=== PATIENT | female | born 1975 | race Caucasian/White ===

== ENCOUNTER → 2020-09-05 14:19 | Outpatient (CLI) | payer BC, SELFPAY ==
--- NOTE | ~2020-09-05 | US_ITS ---
EXAMINATION: US pelvic complete w TV DATE: 09/05/2020 15:08 INDICATION: Abnormal uterine bleeding Comparison:No prior studies for comparison. TECHNIQUE: Multiple transabdominal and endovaginal sonographic images of the pelvis performed. FINDINGS: The uterus measures 8.4 x 3.2 x 4.6 cm. There is a 2.1 cm uterine fibroid at the fundus. Th e endometrial complex measures 3 mm. The right ovary measures 2.6 x 2.2 x 2.6 cm and the left ovary measures 2.3 x 1.7 x 3.2 cm. There ar e small follicles in each ovary. Normal doppler signal in both ovaries. There is no free fluid in the pelvis. There are no abnormal masses seen on either side. IMPRESSION: 1. 2.1 cm fibroid at the fundus of uterus. Reviewed, dictated and finalized at location A.
== END ==
PROVIDERS: Visit Provider Student in an Organized Health Care Education/Training Program
DX: D25.9 Leiomyoma of uterus, unspecified (principal); N93.9 Abnormal uterine and vaginal bleeding, unspecified
CPT/HCPCS: 76830; 76856

== ENCOUNTER → 2020-09-10 01:49 | Outpatient (CLI) | payer BC, SELFPAY ==
[2020-09-10 20:12] LABS: SARS-CoV-2 RNA PCR Negative
== END ==
PROVIDERS: PCP Pediatrics; Visit Provider Student in an Organized Health Care Education/Training Program
DX: Z01.812 Encounter for preprocedural laboratory examination (principal); Z20.822 Contact with and (suspected) exposure to COVID-19
CPT/HCPCS: C9803; U0003; U0005

== ENCOUNTER 2020-09-10 09:49 | Outpatient (CLI) | payer BC, SELFPAY ==
[2020-09-10 10:13] LABS: Hematocrit 36.4 % (37.0-47.0); Hemoglobin 12.1 g/dL (12.0-15.0)
== END 2020-09-10 09:50 | disposition home or self-care (01) ==
LOC: ANHSURGERY 09:53
PROVIDERS: PCP Pediatrics; Visit Provider Student in an Organized Health Care Education/Training Program
DX: Z01.818 Encounter for other preprocedural examination (principal); N92.6 Irregular menstruation, unspecified
CPT/HCPCS: 36415; 85014; 85018

== ENCOUNTER 2020-09-13 02:00 | Day surgery (SDC) | payer BC, SELFPAY ==
[2020-09-07 13:50] VITALS: BMI 28.1
--- NOTE | 2020-09-13 08:00 | PM.IMHP ---
H&P: HPI History of Present Illness Date/Time: 09/13/20 08:00 44-year-old who presents for hysteroscopy, D&C, endometrial ablation for abnormal uterine bleeding. Patient presented to the office complaining of heavy painful menstrual bleeding for the past 5-6 years. Patient was previously using oral contraceptive pills but was advised to stop given maternal history of breast cancer. Chief Complaint: abnormal uterine bleeding pelvic pain Review of Systems Cardiovascular: Cardiovascular: Denies chest pain, Denies leg edema, Denies palpitations, Denies dyspnea and Denies dyspnea on exertion Respiratory: Respiratory: Denies cough, Denies dyspnea and Denies dyspnea on exertion Gastrointestinal: Gastrointestinal: Denies abdominal pain, Denies constipation, Denies diarrhea, Denies nausea and Denies vomiting Genitourinary: Genitourinary: Denies hematuria, Denies urinary frequency, Denies dysuria, Denies pelvic pain, Denies urinary incontinence and Denies vaginal discharge Neurologic: Reports system reviewed and no additional complaints, except as documented Psychiatric: Psychiatric: Reports no additional psychiatric complaints Endocrine: Endocrine: Denies palpitations PMFSH Social History Social History Smoking status: Never smoker Alcohol intake: current Drinks per week: 6 Substance use: current Substance use type: does not use Living arrangements: with family Spiritual care concerns: No Meds Home Medications and Allergies Home Medications Medication Instructions Recorded Confirmed Type Control Pill 1 tablet PO HS 09/07/20 09/07/20 History Allergies Allergy/AdvReac Type Severity Reaction Status Date / Time No Known Allergies Allergy Verified 09/07/20 13:49 Exam Const: General: no acute distress Eyes: EOM: EOMs intact bilaterally Neck: Neck: supple Thyroid: thyroid normal Chest: Breast/axilla inspection: normal inspection of the breasts Breast/axilla palpation: normal palpation of the breasts, normal palpation of the axillae and no axillary lymphadenopathy Resp: Effort & Inspection: normal respiratory effort Auscultation: clear to auscultation bilaterally Cardio: Rate: regular rate Rhythm: regular rhythm GI: Inspection: non-distended GI Palp: Yes Soft to palpation, No Tenderness to palpation present (GI) and No Guarding due to palpation present (GI) Auscultation: normal bowel sounds : General: No bladder normal to palpation External Female Exam: normal external appearance Speculum Exam - Vagina: normal vaginal discharge and No vaginal bleeding Speculum Exam - Cervix: nontender Bimanual exam- vagina & uterus: No bladder normal to palpation and No Cervical tenderness present OB/external & speculum: No vaginal bleeding Skin: General skin exam: normal color and no rashes or lesions noted Neuro: Cognition (Neuro): normal cognition Speech: normal speech Extrem: General: normal to inspection and no edema Psych: Mental Status: mental status grossly normal Affect: normal affect Assessment and Plan Assessment and plan (1) Abnormal uterine bleeding (AUB): Code(s): N93.9 - Abnormal uterine and vaginal bleeding, unspecified Status: Acute Assessment and Plan: pt complaining of heavy painful periods for the past 5 years pt previously on OCPs and stopped due to family history of breast cancer pt desires surgical management of heavy bleeding pelvic US showed uterus measuring 8.4 x 3.2 x4.6 cm with a 2.1 cm fibroid at the fundus. plan for hysteroscopy, D&C, endometrial ablation (2) Pelvic pain: Code(s): R10.2 - Pelvic and perineal pain Status: Acute
--- NOTE | 2020-09-13 08:15 | WPDHPUPDATE1 ---
History and Physical Update Update Date/Time: 09/13/20 08:15 History and Physical has been reviewed, including an updated exam of the patient. There are NO changes in the patient's condition. Risks, benefits, and alternatives have been discussed and questions answered. Patient agrees to proceed with procedure.
[2020-09-13] MEDS: ACETAMINOPHEN 500 MG TABLET 1000 MG PO (10:17)
[2020-09-13] MEDS: LACTATED RINGERS 1,000 ML 30 ML IV CONT (10:30)
[2020-09-13 10:34] VITALS: BP 145/83; PULSE 60; RESP 16; TEMP 36.9; O2SAT 100
--- NOTE | 2020-09-13 11:27 | WPDANESEPPF ---
Anes - Initial Pre Proc Eval Procedure: Operation Date: 09/13/20 12:00 Proposed Procedures p Hysteroscopy, Dilation and Curettage with Ijeoma Ablation - Jack Sow MD Date/Time: 09/13/20 11:27 Surgeon: Jack Sow MD Pre Op Diagnosis: irregular bleeding Patient Data Age: 44 Gender: F Height: 5 ft 7 in Weight: 85.5 kg Last Vital Signs Temp 98.5 F 09/13/20 10:34 Pulse 60 09/13/20 10:34 Resp 16 09/13/20 10:34 BP 145/83 H 09/13/20 10:34 Pulse Ox 100 09/13/20 10:34 Allergies Allergy/AdvReac Type Severity Reaction Status Date / Time No Known Allergies Allergy Verified 09/13/20 10:14 Home Medications Medication Instructions Recorded Confirmed Type Control Pill 1 tablet PO HS 09/07/20 09/13/20 History Patient hx anesthesia problems: none Family hx anesthesia problems: none [facility] Past Medical History Medical History (Updated 09/13/20 @ 11:30 by John Slade MD) McArdles disease Migraine Social History Social History Smoking status: Never smoker Alcohol intake: current Drinks per week: 6 Substance use: current Substance use type: does not use Living arrangements: with family Spiritual care concerns: No Anes - Eval Final PreProcedure Day of Procedure 09/13/20 11:27 Patient weight: overweight Heart: regular rate and rhythm Lungs: clear to auscultation Airway: Mallampati scale class II Neurological: alert and oriented Last oral intake: >/= 8 hours ASA classification: II Emergent: no Anesthetic plan: proceed Anesthesia type and monitoring: general GIVS and standard monitoring Informed Consent: The patient's anesthetic plan and its attendant risks and benefits were discussed with the patient/family/POA. Questions were solicited and answers provided to the satisfaction of the patient/family/POA.
--- NOTE | 2020-09-13 12:35 | P.OP_ITS ---
Procedure Note - Detailed Date of procedure: 09/13/20 Pre-op diagnosis: irregular bleeding Post-op diagnosis: same Procedure performed: Paracervical block Hysteroscopy D&C endometrial ablation Description of procedure: The risks, benefits, indications and alternatives were reviewed with the patient and informed consent was obtained. The patient was taken to the operating room and placed under general anesthesia without incident. A vaginal exam was performed and the uterus was noted to be anteverted. The patient was placed in dorsolithotomy position, prepped and draped in the usual sterile fashion. Mota retractors were placed anteriorly and posteriorly in the vagina, and the cervix was grasped with a tenaculum. A paracervical block was then performed. The cervix was dilated and the hysteroscope was introduced. The cervical canal was visualized and the hysteroscope was passed into the uterine cavity without incident. The endometrial lining was visualized. Both ostia of the fallopian tubes were visualized and appear to be grossly normal. The hysteroscope was removed, and the cervix was further dilated to allow for passage of the sharp curette. The sharp curette was advanced to the fundus and endometrial curettage was performed, with the curettage sampling being preserved and sent for pathology. The uterus sounded to 8 cm total, with the cervical length measured as 2.5 cm, with a difference of 5.5 cm for the uterine cavity. The Ijeoma was set to the appropriate depth and introduced into the cavity. The device was opened and advanced gently to the fundus. The array on the device was noted to not have opened all the way. Good CO2 seal was noted. The device was closed and removed. A second attempt was made to open the device in the cavity. At the second attempt, a good CO2 seal was unable to be obtained. The device was then removed again and the hysteroscope was re-introduced. Upon survey of the endometrial cavity, it was not that there was a small perforation at the fundus of the uterus. The perforation was hem ostatic. All instrumentation was removed from the cavity and the procedure was aborted. The tenaculum was removed with good hemostasis noted. Instrument, sharp, and sponge counts were correct. 140 mL of normal saline was instilled and 40 mL of normal saline was returned leaving a deficit of 100 mL. The patient tolerated the procedure well. The patient was taken to the recovery area in stable condition. Anesthesia: [facility] Surgeon: Jack Sow MD Estimated blood loss (mL): 25 Drains: No Packing: No Pathology: yes (endometrial curettings) Complications: No immediate complications Condition: stable Disposition: PACU
[2020-09-13 12:41] VITALS: BP 151/85; PULSE 58; RESP 18; O2SAT 98
[2020-09-13] MEDS: oxyCODONE HCL (*CRX) 5 MG TAB IR PO (13:07)
[2020-09-13 13:10] VITALS: BP 162/87; PULSE 60; RESP 20
[2020-09-13 13:40] VITALS: BP 163/75; PULSE 52; RESP 20
== END 2020-09-13 13:57 | disposition home or self-care (01) ==
PROVIDERS: PCP Pediatrics; Visit Provider Student in an Organized Health Care Education/Training Program
PROC: 0U5B8ZZ Destruction of Endometrium, Via Natural or Artificial Opening Endoscopic (ICD-10-PCS; CPT 58563; principal; 2020-09-13 12:00)
DX: N93.9 Abnormal uterine and vaginal bleeding, unspecified (principal); R10.2 Pelvic and perineal pain; E74.04 McArdle disease
CPT/HCPCS: 58563; 88305; A9270; J1100; J2250; J2405; J2704; J3010; J7030; J7120

== ENCOUNTER → 2021-07-01 00:38 | Outpatient (CLI) | payer BC, SELFPAY ==
[2021-07-02 10:57] LABS: SARS-CoV-2 RNA PCR Negative
== END ==
PROVIDERS: PCP Pediatrics; Visit Provider Student in an Organized Health Care Education/Training Program
DX: Z01.812 Encounter for preprocedural laboratory examination (principal); Z20.822 Contact with and (suspected) exposure to COVID-19
CPT/HCPCS: C9803; U0003; U0005

== ENCOUNTER 2021-07-01 08:49 | Outpatient (CLI) | payer BC, SELFPAY ==
--- NOTE | 2021-07-01 08:57 | ECG_ITS ---
Measurements Intervals [place] Rate: 57 P: 29 ME: 157 QRS: 37 QRSD: 86 T: 24 QT: 398 QTc: 388 Interpretive Statements SINUS BRADYCARDIA BASELINE ARTIFACT- I, II, III, AVR, AVL, AVF BORDERLINE ECG Electronically Signed On 07-01-2021 9:27:19 HEMP [employer] OFF by Shadi Stiles D.O.
[2021-07-01 09:37] LABS: Hematocrit 38.2 % (37.0-47.0); Hemoglobin 12.8 g/dL (12.0-15.0); Mean Corpuscular HGB Conc 33.5 g/dl (32-36); Mean Corpuscular Hemoglobin 29.4 pg (26-34); Mean Corpuscular Volume 87.8 fl (80-100); Mean Platelet Volume 9.4 fl (7.4-10.4); Platelet Count Result 289 k/mm3 (150-375); Red Blood Count 4.35 M/mm3 (4.2-5.4); Red Cell Distribution Width 13.9 % (11.5-14.5); White Blood Count 5.2 K/mm3 (4.5-10.0)
[2021-07-01 09:50] LABS: Anion Gap 13 mmol/L (8-16); Blood Urea Nitrogen 15 mg/dL (7-17); Calcium 9.2 mg/dL (8.4-10.2); Carbon Dioxide 22 mmol/L (22-30); Chloride 105 mmol/L (98-107); Estimated Glomerular Filt Rate > 60; Glucose 113 mg/dL (65-110); Sodium 140 mmol/L (137-145)
== END 2021-07-01 08:50 | disposition home or self-care (01) ==
LOC: ANHSURGERY 08:52
PROVIDERS: Anesthesiology; PCP Pediatrics; Visit Provider Student in an Organized Health Care Education/Training Program
DX: N93.9 Abnormal uterine and vaginal bleeding, unspecified (principal); Z79.899 Other long term (current) drug therapy; I10 Essential (primary) hypertension; Z01.818 Encounter for other preprocedural examination; R94.31 Abnormal electrocardiogram [ECG] [EKG]
CPT/HCPCS: 36415; 80048; 85027; 93005

== ENCOUNTER 2021-07-04 01:29 | Day surgery (SDC) | payer BC, SELFPAY ==
[2021-06-28 14:48] VITALS: BMI 31.3
--- NOTE | 2021-06-28 15:00 | PC.NURSE ---
Report to the Outpatient Waiting Room, entrance under the green pavilion located off [facility], at time 11:30 on date 07/04/21. OR Time: 1:30. - You will be asked a series of questions to screen for COVID 19 for your protection. - A mask is required within the hospital. - No visitors are allowed at this time. Preoperative COVID Testing Requirements: COVID TEST 07/01 AT 8:40 No COVID Test needed if: (proof is required; if not received patient will have Rapid Test prior to entry) - Patient has received COVID Vaccine at least 14 days prior to procedure date or - Patient has positive COVID test result within last 90 days of surgery date. COVID Test needed if above criteria is not met If not COVID vaccinated a COVID test must be conducted within 72 hours of surgery and patient is asked to isolate self from time of testing until procedure. You will go to the [employer] [facility] for your COVID testing. The [employer] [facility] site is located at the corner of [address] [facility]. You will only be called if COVID results are positive and your surgeon may reschedule your elective surgery date. Patients may have clear liquids (water, carbonated beverages, clear teas, apple juice) until 3 hours prior to surgery (10:30) with a maximum of 20 ounces. - No food from midnight until time of surgery Take the following medications with a SIP of water the morning of surgery: NONE Medications to discontinue per physician: N/A Date to take last dose: N/A Please no make-up, nail wolof, hairspray, perfume, deodorant, or body powder the day of surgery. No jewelry (including any body piercings) or valuables the day of surgery, leave them at home. Please take a shower or bath the night before, or the morning of, surgery with an antibacterial soap. Wear comfortable, loose fitting clothing. - Jewelry must be removed prior to entering the operating room. Rings and piercings that are not removed may be cut off. - The hospital will not accept responsibility for valuables. - Please leave all valuables, including medications, at home the day of surgery. If you are going home after surgery, a licensed tow bar driver must drive you home. - NO public transportation without another adult. - We recommend that an adult stay with you for 24 hours following discharge. - We also recommend that you do not drive, make important decision, drink alcoholic beverages, or take any drugs that were not prescribed by your health care provider for at least 24 hours after your discharge time. Follow any additional instructions given to you from your surgeon. Telephone instructions given to LEROY ALVARADO and asked if any additional questions and then verbalized understanding. Patient advised to call surgeon office or pre surgery nurse liaison [phone] if any additional questions.
--- NOTE | 2021-07-03 10:19 | PM.IMHP ---
H&P: HPI History of Present Illness Date/Time: 07/03/21 10:19 Chief Complaint: abnormal uterine bleeding Narrative: 45 yo who presents for hysteroscopy, D&C, endometrial ablation for abnormal uteirne bleeding. Pt has been dealing with AUB for some time. We attempted to perform the above procedure on 09/13/20 but had to abort the procedure to due uterine perforation. Pt continued to have heavy painful bleeding. She is currently taking progesterone to help her bleeding. Pt's partner has had a vasectomy. Review of Systems Cardiovascular: Cardiovascular: Denies chest pain, Denies leg edema, Denies palpitations, Denies dyspnea and Denies dyspnea on exertion Respiratory: Respiratory: Denies cough, Denies dyspnea and Denies dyspnea on exertion Gastrointestinal: Gastrointestinal: Denies abdominal pain, Denies constipation, Denies diarrhea, Denies nausea and Denies vomiting Genitourinary: Genitourinary: Denies hematuria, Denies urinary frequency, Denies dysuria, Denies pelvic pain, Denies urinary incontinence and Denies vaginal discharge Neurologic: Reports system reviewed and no additional complaints, except as documented Psychiatric: Psychiatric: Reports no additional psychiatric complaints Endocrine: Endocrine: Denies palpitations [facility] Past Medical History Medical History (Updated 09/13/20 @ 11:30 by John Slade MD) McArdles disease Migraine Social History Social History Smoking status: Never smoker Alcohol intake: current Drinks per week: 12 Substance use: never Substance use type: does not use Spiritual care concerns: No Meds Home Medications and Allergies Home Medications Medication Instructions Recorded Confirmed Type esomeprazole magnesium [Nexium] 40 mg PO DAILY 06/28/21 06/28/21 History hydrochlorothiazide 12.5 mg PO DAILY 06/28/21 06/28/21 History megestrol 20 mg PO DAILY 06/28/21 06/28/21 History sucralfate [Carafate] 1 g PO DAILY 06/28/21 06/28/21 History Allergies Allergy/AdvReac Type Severity Reaction Status Date / Time No Known Allergies Allergy Verified 06/28/21 14:45 Exam Const: General: no acute distress Eyes: EOM: EOMs intact bilaterally Neck: Neck: supple Thyroid: thyroid normal Chest: Breast/axilla inspection: normal inspection of the breasts Breast/axilla palpation: normal palpation of the breasts, normal palpation of the axillae and no axillary lymphadenopathy Resp: Effort & Inspection: normal respiratory effort Auscultation: clear to auscultation bilaterally Cardio: Rate: regular rate Rhythm: regular rhythm GI: Inspection: non-distended GI Palp: Yes Soft to palpation, No Tenderness to palpation present (GI) and No Guarding due to palpation present (GI) Auscultation: normal bowel sounds : General: No bladder normal to palpation External Female Exam: normal external appearance Speculum Exam - Vagina: normal vaginal discharge and No vaginal bleeding Speculum Exam - Cervix: nontender Bimanual exam- vagina & uterus: No bladder normal to palpation and No Cervical tenderness present OB/external & speculum: No vaginal bleeding Skin: General skin exam: normal color and no rashes or lesions noted Neuro: Cognition (Neuro): normal cognition Speech: normal speech Extrem: General: normal to inspection and no edema Psych: Mental Status: mental status grossly normal Affect: normal affect Assessment and Plan Assessment and plan (1) Abnormal uterine bleeding (AUB): Code(s): N93.9 - Abnormal uterine and vaginal bleeding, unspecified Status: Acute Assessment and Plan: pt with long history of heavy painful bleeding pt attempted to have endometrial ablation in the past but was aborted due to perforation plan for hysteroscopy, D&C, endometrial ablation.
[2021-07-04] VITALS (11 sets, daily range): BP systolic 90–147; BP diastolic 55–86; PULSE 40–64; RESP 10–16; TEMP 36.1–36.9; O2SAT 96–100
--- NOTE | 2021-07-04 09:23 | WPDANESEPPF ---
Anes - Initial Pre Proc Eval Procedure: Operation Date: 07/04/21 13:30 Proposed Procedures p Hysteroscopy, Dilation and Curettage with Ijeoma Endometrial Ablation, Bilateral Laparoscopic Salpingectomy - Jack Sow MD <Antonio Turner MD - Last Filed: 07/05/21 15:27> Date/Time: 07/04/21 09:23 <Antonio Turner MD - Last Filed: 07/05/21 15:27> Surgeon: Jack Sow MD <Antonio Turner MD - Last Filed: 07/05/21 15:27> Pre Op Diagnosis: heavy bleeding, Desires Sterilization <Antonio Turner MD - Last Filed: 07/05/21 15:27> Patient Data Age: 45 Gender: F Height: 1.7 m Weight: 90.72 kg <Antonio Turner MD - Last Filed: 07/05/21 15:27> Allergies Allergy/AdvReac Type Severity Reaction Status Date / Time No Known Allergies Allergy Verified 07/04/21 11:35 <Antonio Turner MD - Last Filed: 07/05/21 15:27> Home Medications Medication Instructions Recorded Confirmed Type esomeprazole magnesium [Nexium] 40 mg PO DAILY 06/28/21 07/04/21 History hydrochlorothiazide 12.5 mg PO DAILY 06/28/21 07/04/21 History megestrol 20 mg PO DAILY 06/28/21 07/04/21 History sucralfate [Carafate] 1 g PO DAILY 06/28/21 07/04/21 History acetaminophen 500 mg PO Q6H PRN #30 cap 07/04/21 Rx ibuprofen 600 mg PO Q6H PRN #30 tablet 07/04/21 Rx <Antonio Turner MD - Last Filed: 07/05/21 15:27> Patient hx anesthesia problems: none <Michael Acosta DO - Last Filed: 07/04/21 12:34> Family hx anesthesia problems: none <Michael Acosta DO - Last Filed: 07/04/21 12:34> Results Review: All pre-operative results and documents have been reviewed as part of the pre-operative evaluation. <Antonio Turner MD - Last Filed: 07/05/21 15:27> [facility] Past Medical History Medical History: Medical History (Updated 07/04/21 @ 09:24 by Antonio Turner MD) Abnormal uterine bleeding (AUB) HTN (hypertension) McArdles disease Migraine Obesity <Antonio Turner MD - Last Filed: 07/05/21 15:27> Social History Social History: Social History Smoking status: Never smoker Alcohol intake: current Drinks per week: 12 Substance use: never Substance use type: does not use Living arrangements: with family Spiritual care concerns: No <Antonio Turner MD - Last Filed: 07/05/21 15:27> Anes - Eval Final PreProcedure Day of Procedure 07/04/21 09:23 <Antonio Turner MD - Last Filed: 07/05/21 15:27> Patient weight: obese <Antonio Turner MD - Last Filed: 07/05/21 15:27> obese <Michael Acosta DO - Last Filed: 07/04/21 12:34> Heart: regular rate and rhythm <Antonio Turner MD - Last Filed: 07/05/21 15:27> regular rate and rhythm <Michael Acosta DO - Last Filed: 07/04/21 12:34> Lungs: clear to auscultation and normal air movement <Antonio Turner MD - Last Filed: 07/05/21 15:27> clear to auscultation and normal air movement <Michael Acosta DO - Last Filed: 07/04/21 12:34> Airway: Mallampati scale class II <Antonio Turner MD - Last Filed: 07/05/21 15:27> Mallampati scale class II <Michael Acosta DO - Last Filed: 07/04/21 12:34> Neurological: alert and oriented <Antonio Turner MD - Last Filed: 07/05/21 15:27> alert and oriented <Michael Acosta DO - Last Filed: 07/04/21 12:34> Last oral intake: >/= 8 hours <Antonio Turner MD - Last Filed: 07/05/21 15:27> >/= 8 hours <Michael Acosta DO - Last Filed: 07/04/21 12:34> ASA classification: II <Antonio Turner MD - Last Filed: 07/05/21 15:27> III <Michael Acosta DO - Last Filed: 07/04/21 12:34> Emergent: no <Antonio Turner MD - Last Filed: 07/05/21 15:27> no <Michael Acosta DO - Last Filed: 07/04/21 12:34> Anesthetic plan: proceed <Antonio Turner MD - Last Filed: 07/05/21 15:27> proceed <Jourdan
--- NOTE | 2021-07-04 10:21 | WPDHPUPDATE1 ---
History and Physical Update Update Date/Time: 07/04/21 10:21 History and Physical has been reviewed, including an updated exam of the patient. There are NO changes in the patient's condition. Risks, benefits, and alternatives have been discussed and questions answered. Patient agrees to proceed with procedure.
[2021-07-04] MEDS: ACETAMINOPHEN 500 MG TABLET 1000 MG PO (12:11)
[2021-07-04] MEDS: LACTATED RINGERS 1,000 ML 30 ML IV CONT ×3 (12:11→15:31)
[2021-07-04] MEDS: KETOROLAC 15 MG/ML VIAL (*BKC) IV PUSH ×2 (12:14→15:30)
--- NOTE | 2021-07-04 14:09 | W.PM.PROC2 ---
Procedure Note - Detailed Date of Procedure 07/04/21 Pre-op Diagnosis heavy bleeding, Desires Sterilization Post-op Diagnosis same Procedure Performed hysteroscopy dilation & curettage endometrial ablation laparoscopic bilateral salpingectomy Surgeon Jack Sow MD Anesthesia general Indications desires permanent sterilization Findings peritoneal gun powder lesions noted on the uterus suggestive of endometriosis omental adhesions to the anterior abdominal abdominal wall Description of Procedure the patient was taken to the operating room where general endotracheal anesthesia was undertaken and found to be adequate. She was then prepped and draped in the dorsal lithotomy position. A pre-operative team brief and time-out were completed. A catheter was placed to drain the bladder. Attention was then turned to the abdomen which was anesthetized umbilical he with injected anesthetic. A 5 mm skin incision was made in the umbilicus. A 5 mm optical trocar was then placed with direct visualization of the abdominal layers during placement. The trocar stylette was removed and the camera was used to verify intra-abdominal placement. CO2 insufflation was then connected and The abdominal cavity was insufflated. General abdominal and pelvic survey was performed. There were omental adhesions noted to the abdominal wall in the periumbilical region. I was unable to visualized the LLQ of the pelvis due to adhesions. A RLQ 5mm laparoscopic port site incision was made approximately 2 cm superior and medial of the ASIS bilaterally. The camera was then placed in the port and lysis of adhesions was performed through the umbilical port with the ligasure. A LLQ 5mm laparoscopic port was placed after clearance of adhesions. A throughout pelvic survey was performed. Peritoneal gunpowder lesions were noted on the fundal portion of the uterus. There was ahesions between the bladder and anterior abdominal wall secondary to previous c-sections. Both fallopian tubes were inspected and identified out to the level of the fimbriae. The Fimbriated end of the left fallopian tube was then grasped with a blunt grasper. the fallopian tube was then transected along its inferior aspect along the mesosalpinx with the LigaSure device. Transection was carried out to the fallopian tubes insertion into the uterine fundus. The fallopian tube was then completely transected from the uterus using the LigaSure device. This procedure was repeated for the right fallopian tube. Good hemostasis was maintained throughout. The transected fgh the 5 mm laparoscopic port from the abdomen through the 5 mm laparoscopic port. The surgical field was inspected and again could hemostasis was noted. At this point the procedure was ended. The abdomen was desufflated. All laparoscopic ports were removed from the abdomen. Abdominal incisions were closed with 4-0 Vicryl in a subcuticular fashion. Attention was then turned to the pelvis to perform the remainder of the procedure. A sterile speculum was placed in the vagina and the cervix was visualized. The anterior lip of the cervix was grasped with a single tooth tenaculum. The cervix was dilated and the hysteroscope was introduced. The endometrial lining was visualized. There were no gross abnormalities identified. The hysteroscope was removed and sharp curettage was performed. The sampling was collected and sent for pathology. The uterus was sounded and noted to be 7cm. The endocervical canal sounded to 1.5 cm. The uterine depth was then set to 5.5 cm on the Ijeoma device. The device was introduced through the cervix and advanced to the uterine fundus. The device was retracted slightly and the device was deployed. Proper deployment was achieved with appropriate checks on the device. Once the device was seated, a cavity assessment was performed by the device and was successful. The ablation was then started. The entire ablation took 120 section
[2021-07-04] MEDS: LIDO 1%/EPINEPHRINE/PF 1:200,000 30 ML VIAL XX (14:10)
[2021-07-04] MEDS: fentaNYL CITRATE INJ (*CRX) 100 MCG/2 ML VIAL 25 MCG IV PUSH ×8 (14:37→15:48)
[2021-07-04] MEDS: ONDANSETRON INJ 4 MG/2 ML VIAL IV PUSH (16:10)
[2021-07-04] MEDS: HYDROmorphone HCL INJ (*CRX) 1 MG/ML SYR 0.5 MG IV PUSH (16:38)
[2021-07-04] MEDS: HYDROmorphone HCL INJ (*CRX) 1 MG/ML SYR 0.25 MG IV PUSH (17:10)
[2021-07-04] MEDS: oxyCODONE HCL (*CRX) 5 MG TAB IR PO (17:36)
== END 2021-07-04 17:51 | disposition home or self-care (01) ==
PROVIDERS: PCP Pediatrics; Visit Provider Student in an Organized Health Care Education/Training Program
PROC: 0UDB8ZZ Extraction of Endometrium, Via Natural or Artificial Opening Endoscopic (ICD-10-PCS; CPT 58558; principal; 2021-07-04 13:30)
DX: N93.9 Abnormal uterine and vaginal bleeding, unspecified (principal); Z30.2 Encounter for sterilization; N73.6 Female pelvic peritoneal adhesions (postinfective); I10 Essential (primary) hypertension; E66.9 Obesity, unspecified; Z68.30 Body mass index [BMI] 30.0-30.9, adult
CPT/HCPCS: 58563; 58661; 88302; 88305; A9270; J1100; J1170; J1885; J2250; J2405; J2704; J2710; J3010; J7030; J7120

== ENCOUNTER 2022-07-10 00:45 | Day surgery (SDC) | payer BC, SELFPAY ==
[2022-06-26 12:27] VITALS: BMI 27.6
[2022-07-10 09:41] VITALS: BP 112/72; PULSE 58; RESP 16; TEMP 36.4; O2SAT 100; BMI 30.8
[2022-07-10] MEDS: LACTATED RINGERS 1,000 ML 150 ML IV CONT (09:52)
--- NOTE | 2022-07-10 09:54 | PM.HPGS ---
History of Present Illness History of Present Illness Consent: Risks, benefits, and alternatives have been discussed and questions answered. Patient agrees to proceed with procedure. Chief complaint: colitis Narrative: Ema Reeder is a 46 year old female Presents for colonoscopy. Patient reports having right lower quadrant abdominal pain that began 3 or 4 weeks ago. Lasted for several days which prompted her to go to the emergency room in [place]. Initially diagnosed with a bladder infection. Patient was placed on antibiotics and allowed to go home. A CT scan in the emergency room was performed initially unremarkable. Because of persistent pain she returned to the emergency room the following day in review of her CT scan suggested that she may have had colitis in the terminal ileum and ascending colon. Patient was continued on antibiotics and right lower quadrant abdominal pain improved after a duration of 4-5 days. Patient is referred now for colonoscopy to assess this area more thoroughly. Also because of her age for screening purposes. Patient denies any diarrhea. She has had no fever during this interval. Currently is pain free with normal bowel habits no bleeding noted. Family history noncontributory. Review of Systems Review of Systems: Review of systems noncontributory. [facility] Past Medical History Medical History (Updated 07/10/22 @ 09:58 by Afshin Helms MD) Abnormal uterine bleeding (AUB) HTN (hypertension) McArdles disease Migraine Obesity Social History Social History Smoking status: Never smoker Alcohol intake: current Drinks per week: 5 Substance use: never Substance use type: does not use Living arrangements: with family Spiritual care concerns: No Meds Home Medications and Allergies Home Medications Medication Instructions Recorded Confirmed Type No Home Medications 07/10/22 07/10/22 History Allergies Allergy/AdvReac Type Severity Reaction Status Date / Time No Known Allergies Allergy Verified 07/10/22 09:40 Vital Signs Vital Signs - 24 hr 07/10/22 09:41 Temperature 97.6 F Pulse Rate 58 L Respiratory Rate 16 Blood Pressure 112/72 Pulse Oximetry 100 Oxygen Delivery Room Air Exam Narrative: Physical exam reveals patient to be alert. Vital signs stable. HEENT exam is unremarkable. Patient anicteric. Lungs are clear. Heart without murmur. Abdomen bowel sounds present soft nontender with no organomegaly. Digital external rectal exam normal. Assessment and Plan Assessment and plan (1) Abnormal CT scan: Code(s): R93.89 - Abnormal findings on diagnostic imaging of other specified body structures Status: Acute Assessment and Plan: Patient had abnormal CT scan in the emergency room suggesting colitis in the ileocecal region. Colonoscopy request at this time to evaluate more thoroughly. (2) RLQ abdominal pain: Code(s): R10.31 - Right lower quadrant pain Status: Acute Assessment and Plan: Right lower quadrant abdominal pain now resolved patient recently had urinary tract infection an abnormal CT scan suggesting possible colitis in the ileocecal region. (3) Encounter for screening colonoscopy: Code(s): Z12.11 - Encounter for screening for malignant neoplasm of colon Status: Acute Assessment and Plan: Screening colonoscopy advised because of her age. Further recommendations may be given after endoscopy.
--- NOTE | 2022-07-10 10:24 | P.PNAN_ITS ---
Anes - Initial Pre Proc Eval Procedure: Operation Date: 07/10/22 10:30 Proposed Procedures p Colonoscopy - Afshin Helms MD Date/Time: 07/10/22 10:24 Surgeon: Afshin Helms MD Pre Op Diagnosis: colitis Patient Data Age: 46 Gender: F Height: 1.7 m Weight: 89.3 kg Last Vital Signs Temp 97.6 F 07/10/22 09:41 Pulse 58 L 07/10/22 09:41 Resp 16 07/10/22 09:41 BP 112/72 07/10/22 09:41 Pulse Ox 100 07/10/22 09:41 O2 Del Method Room Air 07/10/22 09:41 Allergies Allergy/AdvReac Type Severity Reaction Status Date / Time No Known Allergies Allergy Verified 07/10/22 09:40 Home Medications Medication Instructions Recorded Confirmed Type No Home Medications 07/10/22 07/10/22 History Patient hx anesthesia problems: none Family hx anesthesia problems: none Results Review: All pre-operative results and documents have been reviewed as part of the pre- operative evaluation. [facility] Past Medical History Medical History (Updated 07/10/22 @ 09:58 by Afshin Helms MD) Abnormal uterine bleeding (AUB) HTN (hypertension) McArdles disease Migraine Obesity Social History Social History Smoking status: Never smoker Alcohol intake: current Drinks per week: 5 Substance use: never Substance use type: does not use Living arrangements: with family Spiritual care concerns: No Anes - Eval Final PreProcedure Day of Procedure 07/10/22 10:24 Patient weight: normal Heart: regular rate and rhythm Lungs: clear to auscultation Airway: Mallampati scale class II Neurological: alert and oriented Last oral intake: >/= 8 hours ASA classification: II Emergent: no Anesthetic plan: proceed Anesthesia type and monitoring: general GIVS and standard monitoring Results Review: All pre-operative results and documents have been reviewed as part of the pre-operative evaluation. Informed Consent: The patient's anesthetic plan and its attendant risks and benefits were discussed with the patient/family/POA. Questions were solicited and answers provided to the satisfaction of the patient/family/POA.
[2022-07-10] MEDS: SIMETHICONE ORAL SUSPENSION 20 MG/0.3 ML 30 ML BOTTLE 0.6 ML IRRIGATION (10:31)
[2022-07-10 10:40] VITALS: BP 100/60; PULSE 50; RESP 18; O2SAT 100
[2022-07-10 10:50] VITALS: BP 115/74; PULSE 43; RESP 14; O2SAT 99
[2022-07-10 11:00] VITALS: BP 114/75; PULSE 46; RESP 22; O2SAT 100
== END 2022-07-10 11:03 | disposition home or self-care (01) ==
PROVIDERS: PCP Pediatrics; Visit Provider Internal Medicine Gastroenterology
PROC: 0DJD8ZZ Inspection of Lower Intestinal Tract, Via Natural or Artificial Opening Endoscopic (ICD-10-PCS; CPT 45378; principal; 2022-07-10 10:30)
DX: Z12.11 Encounter for screening for malignant neoplasm of colon (principal); K57.30 Diverticulosis of large intestine without perforation or abscess without bleeding; K64.8 Other hemorrhoids; R10.31 Right lower quadrant pain
CPT/HCPCS: 45378; J2704; J7120

== ENCOUNTER 2023-02-20 14:16 | Outpatient (CLI) | payer BC, SELFPAY ==
--- NOTE | ~2023-02-20 | CT_ITS ---
EXAMINATION: CT abdomen pelvis wo con DATE: 02/20/2023 14:31 INDICATION: Right lower quadrant abdominal pain TECHNIQUE: Computed tomography (CT) of the abdomen and pelvis was performed with 100 mL Omnipaque-350 intravenous contrast. Automated exposure control and iterative reconstruction technique were employe d. The dose-length product was 783.96 mGy-cm. 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 Heart size is normal. No pericardial or pleural effusion. A couple low-attenuation hepatic cyst s measuring up to 1.3 cm. Gallbladder, pancreas, right kidney and right adrenal gland are normal. 2 c m low-attenuation left adrenal adenoma. 1.5 cm left renal cyst. Normal retrocecal appendix. There are few sigmoid diverticula without adjacent inflammatory stranding to suggest diverticulitis. No bowel obstruction. Bladder is normal. Interval increase in size of a now 3 cm hypodense fibroid at the righ t side of the uterine fundus. 2.7 cm left adnexal cyst. No free intraperitoneal gas or fluid. No path ologically enlarged abdominal or pelvic lymphadenopathy. Mild lumbar and lower thoracic spondylosis. IMPRESSION: 1. Normal appendix. No acute intracranial process. 2. 3 cm uterine fibroid and 2.7 cm left adnexal cyst. Reviewed, dictated and finalized at location A.
== END 2023-02-20 14:17 ==
LOC: MICIMG 14:17
PROVIDERS: PCP Pediatrics
DX: R10.31 Right lower quadrant pain (principal); Z68.26 Body mass index [BMI] 26.0-26.9, adult; D25.9 Leiomyoma of uterus, unspecified
CPT/HCPCS: 74176

== ENCOUNTER 2023-04-22 14:09 | Outpatient (CLI) | payer BC, SELFPAY ==
[2023-04-22 14:28] LABS: Mean Corpuscular HGB Conc 32.4 g/dl (32-36); Mean Corpuscular Hemoglobin 28.9 pg (26-34); Mean Corpuscular Volume 89.2 fl (80-100); Mean Platelet Volume 8.9 fl (7.4-10.4); Platelet Count Result 216 k/mm3 (150-375); Red Blood Count 4.15 M/mm3 (4.2-5.4); White Blood Count 5.7 K/mm3 (4.5-10.0)
== END 2023-04-22 14:10 | disposition home or self-care (01) ==
PROVIDERS: PCP Pediatrics; Referring Provider Obstetrics & Gynecology; Visit Provider Student in an Organized Health Care Education/Training Program
DX: Z01.812 Encounter for preprocedural laboratory examination (principal); D25.9 Leiomyoma of uterus, unspecified
CPT/HCPCS: 36415; 85027; 86850; 86900; 86901

== ENCOUNTER 2023-04-23 01:24 | Day surgery (SDC) | payer BC, SELFPAY ==
[2023-04-17 09:49] VITALS: BMI 28.1
--- NOTE | 2023-04-17 09:53 | PC.NURSE ---
Report to the Outpatient Waiting Room, entrance under the green pavilion located off [facility], at time 10:00 on date 04/23/23. Planned Procedure Time: 12:00. Time changes happen often and if your time is changed the preop area will call you the afternoon before. - You and your visitor will be asked to self-screen and do not enter if you have any COVID symptoms. - A mask is optional within the hospital at this time. Patients may have clear liquids (water, carbonated beverages, clear teas, apple juice) until 3 hours prior to surgery (9:00) with a maximum of 20 ounces. - No food from midnight until time of surgery Take the following medications with a SIP of water the morning of surgery: PAIN PILL (IF NEEDED) DO NOT STOP ANY OF YOUR OTHER PRESCRIPTION MEDICATIONS PRIOR TO SURGERY ?EXCEPT THE FOLLOWING Medications to discontinue per physician: N/A Date to take last dose: N/A Please no make-up, nail syriac, hairspray, perfume, deodorant, or body powder the day of surgery. No jewelry (including any body piercings) or valuables the day of surgery, leave them at home. Please take a shower or bath the night before, or the morning of, surgery with an antibacterial soap. Wear comfortable, loose fitting clothing. - Jewelry must be removed prior to entering the operating room. Rings and piercings that are not removed may be cut off. - The hospital will not accept responsibility for valuables. - Please leave all valuables, including medications, at home the day of surgery. If you are going home after surgery, a licensed construction driver must drive you home. - NO public transportation without another adult if you receive anesthesia. - We recommend that an adult stay with you for 24 hours following discharge. - We also recommend that you do not drive, make important decision, drink alcoholic beverages, or take any drugs that were not prescribed by your health care provider for at least 24 hours after your discharge time. Follow any additional instructions given to you from your surgeon. If you or anyone in your household have experienced Covid symptoms in the past week, please notify your surgeon or the nurse liaison at the phone number below for possible testing. Telephone instructions given to PT - LEROY ALVARADO and asked if any additional questions and then verbalized understanding. Patient advised to call surgeon office or pre surgery nurse liaison [phone] if any additional questions.
[2023-04-23] VITALS (14 sets, daily range): BP systolic 105–135; BP diastolic 62–96; PULSE 51–85; RESP 10–18; TEMP 36.5–36.9; O2SAT 92–100
--- NOTE | 2023-04-23 09:45 | PM.IMHP ---
H&P: HPI History of Present Illness Date/Time: 04/23/23 09:45 Chief Complaint: Pelvic pain Narrative: 47-year-old female who presents for robotic hysterectomy for pelvic pain. patient has been dealing with pelvic pain for some time. Patient had an endometrial ablation in the past for abnormal uterine bleeding in 2021.? Pelvic ultrasound shows a thickened, heterogeneous endometrium.? Suspect hematometria. Pt is requesting hysterectomy Review of Systems Cardiovascular: Cardiovascular: Denies chest pain, Denies leg edema, Denies palpitations, Denies dyspnea and Denies dyspnea on exertion Respiratory: Respiratory: Denies cough, Denies dyspnea and Denies dyspnea on exertion Gastrointestinal: Gastrointestinal: Denies abdominal pain, Denies constipation, Denies diarrhea, Denies nausea and Denies vomiting Genitourinary: Genitourinary: Denies hematuria, Denies urinary frequency, Denies dysuria, Denies pelvic pain, Denies urinary incontinence and Denies vaginal discharge Neurologic: Reports system reviewed and no additional complaints, except as documented Psychiatric: Psychiatric: Reports no additional psychiatric complaints Endocrine: Endocrine: Denies palpitations PMFSH Past Medical History Medical History Abnormal uterine bleeding (AUB) Hernia HTN (hypertension) McArdles disease Migraine Obesity Tubal ligation evaluation Surgical History Surgical History (Updated 03/24/23 @ 15:29 by Tarah Garibay CMA) H/O gynecological procedure ~ 2021 ablation History of delivery Family History Family History Daughter No problems noted. Mother Breast cancer Other Thyroid cancer Social History Social History Smoking status: Never smoker Alcohol intake: current Drinks per week: 8 Substance use: never Substance use type: does not use Current Housing: Decline to Answer Concerned About Future Housing: Decline to Answer Difficulty Paying Gas/Electric Bills: Decline to Answer Difficulty Paying for Meds: Decline to Answer Currently Unemployed: Decline to Answer Education: Decline to Answer Living arrangements: with family Additional living arrangements comments: significant other Occupation/Education: occupation Gender identity (if verbalized by the patient): Female Sexual Orientation (if Verbalized by the Patient): Straight or Heterosexual Spiritual care concerns: No Meds Home Medications and Allergies Home Medications Medication Instructions Recorded Confirmed Type acetaminophen 300 mg-codeine 30 mg 1 tablet PO Q8H PRN pain #30 tabs 03/17/23 04/17/23 Rx tablet Allergies Allergy/AdvReac Type Severity Reaction Status Date / Time No Known Allergies Allergy Verified 04/17/23 09:48 Exam Const: General: no acute distress Eyes: EOM: EOMs intact bilaterally Neck: Neck: supple Thyroid: thyroid normal Chest: Breast/axilla inspection: normal inspection of the breasts Breast/axilla palpation: normal palpation of the breasts, normal palpation of the axillae and no axillary lymphadenopathy Resp: Effort & Inspection: normal respiratory effort Auscultation: clear to auscultation bilaterally Cardio: Rate: regular rate Rhythm: regular rhythm GI: Inspection: non-distended GI Palp: Yes Soft to palpation, No Tenderness to palpation present (GI) and No Guarding due to palpation present (GI) Auscultation: normal bowel sounds : General: No bladder normal to palpation External Female Exam: normal external appearance Speculum Exam - Vagina: normal vaginal discharge and No vaginal bleeding Speculum Exam - Cervix: nontender Bimanual exam- vagina & uterus: No bladder normal to palpation and No Cervical tenderness present OB/external & speculum: No vaginal bleeding Skin: General skin exam: norm
[2023-04-23] MEDS: KETOROLAC 15 MG/ML VIAL (*BKC) IV PUSH (10:57)
[2023-04-23] MEDS: ACETAMINOPHEN 500 MG TABLET 1000 MG PO (10:57)
[2023-04-23] MEDS: LACTATED RINGERS 1,000 ML 30 ML IV CONT ×2 (10:59→13:30)
--- NOTE | 2023-04-23 11:38 | WPDHPUPDATE1 ---
History and Physical Update Update Date/Time: 04/23/23 11:38 History and Physical has been reviewed, including an updated exam of the patient. There are NO changes in the patient's condition. Risks, benefits, and alternatives have been discussed and questions answered. Patient agrees to proceed with procedure.
--- NOTE | 2023-04-23 11:41 | P.PNAN_ITS ---
Anes - Initial Pre Proc Eval Procedure: Operation Date: 04/23/23 12:00 Proposed Procedures p Robotic Assisted Total Laparoscopic Hysterectomy with Bilateral Salpingectomy - Jack Sow MD Date/Time: 04/23/23 11:41 Surgeon: Jack Sow MD Pre Op Diagnosis: Uterine Fibroid, Pelvic Pain Patient Data Age: 47 Gender: F Height: 1.7 m Weight: 81.65 kg Allergies Allergy/AdvReac Type Severity Reaction Status Date / Time No Known Allergies Allergy Verified 04/17/23 09:48 Home Medications Medication Instructions Recorded Confirmed Type acetaminophen 300 mg-codeine 30 mg 1 tablet PO Q8H PRN pain #30 tabs 03/17/23 04/17/23 Rx tablet Patient hx anesthesia problems: none Family hx anesthesia problems: none Results Review: All pre-operative results and documents have been reviewed as part of the pre- operative evaluation. [facility] Past Medical History Medical History Abnormal uterine bleeding (AUB) Hernia HTN (hypertension) McArdles disease Migraine Obesity Tubal ligation evaluation Surgical History Surgical History H/O gynecological procedure ~ 2021 ablation History of delivery Family History Family History Daughter No problems noted. Mother Breast cancer Other Thyroid cancer Social History Social History Smoking status: Never smoker Alcohol intake: current Drinks per week: 8 Substance use: never Substance use type: does not use Current Housing: Decline to Answer Concerned About Future Housing: Decline to Answer Difficulty Paying Gas/Electric Bills: Decline to Answer Difficulty Paying for Meds: Decline to Answer Currently Unemployed: Decline to Answer Education: Decline to Answer Living arrangements: with family Additional living arrangements comments: significant other Occupation/Education: occupation Gender identity (if verbalized by the patient): Female Sexual Orientation (if Verbalized by the Patient): Straight or Heterosexual Spiritual care concerns: No Anes - Eval Final PreProcedure Day of Procedure 04/23/23 11:41 Patient weight: overweight Heart: regular rate and rhythm Lungs: clear to auscultation Airway: Mallampati scale class II Neurological: alert and oriented Last oral intake: >/= 8 hours ASA classification: II Emergent: no Anesthetic plan: proceed Anesthesia type and monitoring: general ETT and standard monitoring Results Review: All pre-operative results and documents have been reviewed as part of the pre- operative evaluation. Informed Consent: The patient's anesthetic plan and its attendant risks and benefits were discussed with the patient/family/POA. Questions were solicited and answers provided to the satisfaction of the patient/family/POA.
[2023-04-23] MEDS: SCOPOLAMINE 1.5 MG PATCH TRANSDERM (11:52)
[2023-04-23] MEDS: ceFAZolin 2 GM/D5W 50 ML 2 GM/50 ML BAG IVPB (12:05)
[2023-04-23] MEDS: LIDO 1%/EPINEPHRINE 1:100,000 50 ML VIAL 17 ML INFILTRATE (12:46)
--- NOTE | 2023-04-23 13:16 | W.PM.PROC2 ---
Procedure Note - Detailed Date of Procedure 04/23/23 Pre-op Diagnosis Uterine Fibroid, Pelvic Pain Post-op Diagnosis Same Procedure Performed robotic assisted total laparoscopic hysterectomy Surgeon Jack Sow MD Anesthesia General Indications pelvic pain uterine fibroid Findings surgically absent fallopian tubes bilaterally enlarged uterus with intramural fibroid noted Description of Procedure After the patient was appropriately consented she was taken to the operating room where she was transferred to the table in a dorsal supine position. General anesthesia was then induced with endotracheal intubation. The patient was transferred to a dorsal lithotomy position using adjustable yellow-fin stirrups. Her position was adjusted for appropriate support of her lower back and lower extremities. The patient was prepped and draped. A transurethral ackerman catheter was place. The cervix was sequentially dilated and a GRACIA uterine manipulator placed in typical fashion about a 3 cm SHANTAL ring. Gloves were changed. After confirmation of a functioning orogastric tube, lidocaine was injected at Melendez's point in the LUQ and a 5mm incision was made. A 8 mm Optiview trocar was then inserted into the abdominal cavity under direct visualization and done so without complication. The abdomen was then insufflated with approximately 2-3L of CO2 establishing a pneumoperitoneum and the patient was placed in Trendelenburg position. Just above the umbilicus in the midline, a 10mm incision made after injection of lidocaine and a 8 mm bladeless trocar advanced into the abdominal cavity under direct visualization without incident. We subsequently placed two robotic ports in a similar fashion, one in the left mid-quadrant and one in the right, 10cm lateral to the midline port. The robot was then docked. Attention was turned to the left pelvis. The bilateral fallopian tubes were noted to be surgically absent. The left utero-ovarian ligament was desiccated and transected, as was the round ligament. The posterior peritoneal leaf was taken down to the SHANTAL ring. The anterior leaf was developed as well as the start of the bladder flap. The left uterine artery was then skeletonized and desiccated and transected just above the level of the SHANTAL ring. Attention was turned to the right pelvis. The right utero-ovarian ligament was desiccated and transected, as was the round ligament. The posterior peritoneal leaf was taken down to the SHANTAL ring. The anterior leaf was developed as well as the start of the bladder flap. The right uterine artery was then skeletonized and desiccated and transected just above the level of the SHANTAL ring. The bladder was then further dissected inferiorly over the level of the SHANTAL ring. A circumferential colpotomy was made using monopolar current. The uterus, cervix, bilateral tubes were then delivered transvaginally. I then placed a single figure of eight suture of 0-vicryl in the left corner of the vaginal cuff. I then re-approximated the colpotomy with a running #1 PDO Quill suture in 2 layers. Following this dissection, the abdomen and pelvis were copiously irrigated and all surgical sites found to be hemostatic. Skin sites were reapproximated with 4-0 Vicryl in a subcuticular fashion. Steri-Strips were placed. The patient tolerated the procedure well. Sponge, needle and instrument counts were correct x 2 and the patient was taken to recovery in stable condition. Ancef wase given for antimicrobial prophylaxis. The patient had SCD's on for VTE prophylaxis during the entire procedure. Estimated Blood Loss 50 Drains No Packing No Pathology Yes (uterus, cervix) Complications No immediate complications Condition Stable Disposition PACU [facility] Billing Surgery - Charge Forward: Surgery Billing
--- NOTE | 2023-04-23 13:24 | PM.DS ---
DS: Admitting Diagnosis Discharge Date 04/24/23 Admitting Diagnosis pelvic pain uterine fibroid DS: Discharge Diagnosis Discharge Diagnosis (1) Uterine fibroid: Code(s): D25.9 - Leiomyoma of uterus, unspecified Status: Acute (2) Pelvic pain: Code(s): R10.2 - Pelvic and perineal pain Status: Acute DS: Summary Hospital Course Hospital Course: Ema Reeder was admitted after robotic assisted total laparoscopic hysterectomy for pelvic pain. The above procedure was performed with no complications. She is doing well post op. She states her pain is well controlled with PO medications. She reports minimal bleeding. She is ambulating up to the chair. Her ackerman catheter was removed. She is tolerating PO without N/V. She reports passing flatus. Status at Discharge Overall status at discharge: patient is progressing back to baseline Time Spent with Patient Time attestation: Total time spent providing and/or coordinating discharge services: Time spent: Less than 30 minutes Exam Const: General: comfortable and no acute distress Limitations: no limitations Resp: Effort & Inspection: normal respiratory effort Auscultation: clear to auscultation bilaterally Cardio: Rate: regular rate Rhythm: regular rhythm GI: Inspection: non-distended GI Palp: Yes Soft to palpation, Yes Tenderness to palpation present (GI) (milder tenderness to deep palpation) and No Guarding due to palpation present (GI) Auscultation: normal bowel sounds Other: incisions C/D/I covered with dermabond Urinary Catheter: Urinary Catheter: urine clear Skin: General skin exam: normal color Extrem: General: normal to inspection Psych: Mental Status: mental status grossly normal Affect: normal affect DS: Data Data Completed and Pending Pending studies at discharge: Pending at discharge 04/23/23 12:47 Surgical [PTH] Routine 04/23/23 13:02 Surgical [PTH] Routine Discharge Plan Discharge Patient Disposition: Home, Self-Care Discharge Instructions: Remove the Scopolamine patch that was placed behind your ear in 72 hours or less. Wash your hands after touching. Patient Instructions: Laparoscopic Hysterectomy (DC) Stand Alone Forms: General Discharge Instructions Follow-up/Referrals: Jack Sow MD [Physician] - Discharge Medications: New oxycodone-acetaminophen 5-325 mg tablet 1 tablet PO Q6H PRN (Reason: pain) Qty: 28 0RF ibuprofen 600 mg tablet 600 mg PO Q6H PRN (Reason: pain) Qty: 30 0RF Discontinued acetaminophen-codeine 300-30 mg tablet 1 tablet PO Q8H PRN (Reason: pain) Qty: 30 0RF
[2023-04-23] MEDS: fentaNYL CITRATE INJ (*CRX) 100 MCG/2 ML VIAL 25 MCG IV PUSH ×8 (13:45→14:06)
[2023-04-23] MEDS: ONDANSETRON INJ 4 MG/2 ML VIAL IV PUSH (13:53)
[2023-04-23] MEDS: diphenhydrAMINE HCl INJ 50 MG/ML VIAL 25 MG IV PUSH (14:06)
[2023-04-23] MEDS: LORATADINE 10 MG TABLET PO (14:20)
[2023-04-23] MEDS: HYDROmorphone HCL INJ (*CRX) 1 MG/ML SYR IV PUSH ×2 (14:27→14:46)
--- NOTE | 2023-04-23 15:58 | ADMGEN ---
1548-This patient, Ema Reeder, was admitted to OB 2nd Floor Room 289-00. Patient/family oriented to hospital policies and general routines including ID bracelet, bed and alarms, visiting hours, pain management, procedures, bathroom and other care routines, personal items, smoking policy, room service/diet, and visiting hours. Information on how to activate the Rapid Response Team has been discussed. Patient/Family are encouraged to report perceived risks to care and to ask questions if they do not understand what they are told or what they should do.
[2023-04-23] MEDS: KETOROLAC 30 MG/ML VIAL (*BKC) IV PUSH (16:44)
[2023-04-23] MEDS: LACTATED RINGERS 1,000 ML 125 ML IV CONT (16:44)
[2023-04-23] MEDS: HYDROcodone/acetaminophen (*CRX) 10-325 MG TABLET 1 TAB PO ×2 (17:58→21:17)
[2023-04-23] MEDS: IBUPROFEN 600 MG TABLET PO (21:17)
[2023-04-24 00:15] VITALS: BP 120/78; PULSE 59; RESP 18; TEMP 36.7; O2SAT 99
[2023-04-24] MEDS: HYDROcodone/acetaminophen (*CRX) 10-325 MG TABLET 1 TAB PO ×4 (00:29→11:50)
[2023-04-24 04:00] VITALS: BP 100/56; PULSE 59; RESP 18; TEMP 36.5; O2SAT 98
[2023-04-24] MEDS: IBUPROFEN 600 MG TABLET PO ×2 (04:00→11:49)
[2023-04-24 05:08] LABS: Basophils Percent Auto 0.1 % (0.2-1.2); Hematocrit 33.6 % (37.0-47.0); Hemoglobin 11.2 g/dL (12.0-15.0); Immature Granulocyte Absolute 0.07 K/mm3 (0.00-0.031); Immature Granulocyte Percent A 0.6 % (0-0.5); Lymphocytes Absolute Auto 1.11 K/mm3 (0.9-3.2); Lymphocytes Percent Auto 9.6 % (18.3-44.2); Mean Corpuscular HGB Conc 33.3 g/dl (32-36); Mean Corpuscular Hemoglobin 29.1 pg (26-34); Mean Corpuscular Volume 87.3 fl (80-100); Mean Platelet Volume 10.1 fl (7.4-10.4); Monocytes Absolute Auto 0.6 K/mm3 (0.1-0.6); Monocytes Percent Auto 4.8 % (2.6-8.5); Neutrophils Absolute Auto 9.8 K/mm3 (1.3-6.7); Neutrophils Percent Auto 84.9 % (45.5-73.1); Platelet Count Result 235 k/mm3 (150-375); Red Blood Count 3.85 M/mm3 (4.2-5.4); White Blood Count 11.6 K/mm3 (4.5-10.0)
[2023-04-24 05:18] LABS: Potassium 3.9 mmol/L (3.4-5.0)
[2023-04-24 05:22] LABS: Anion Gap 5 mmol/L (8-16); Blood Urea Nitrogen 10 mg/dL (7-17); Calcium 8.2 mg/dL (8.4-10.2); Carbon Dioxide 24 mmol/L (22-30); Chloride 105 mmol/L (98-107); Estimated CRCL calculation 108 ml/min; Estimated Glomerular Filt Rate > 60; Glucose 110 mg/dL (65-110); Sodium 134 mmol/L (137-145)
--- NOTE | 2023-04-24 06:44 | PM.GYNPNOP ---
FREELANCE PROGRAMMER/APP DEVELOPER - A/P Assessment and plan (1) S/P laparoscopic hysterectomy: Code(s): Z90.710 - Acquired absence of both cervix and uterus Status: Acute Postoperative Procedures: Procedures Operation Date: 04/23/23 12:00 Actual Procedure Side Surgeon p Robotic Assisted Total Laparoscopic Hysterectomy Bilateral Jack Sow MD Postoperative day: 1 Postoperative status: doing well Postoperative plan: routine post-op care and discharge Time Spent With Patient Time: Total time spent is greater than 50% in coordination of care (as documented) at patient's floor/unit and/or counseling patient: Time with patient: less than 15 minutes FREELANCE PROGRAMMER/APP DEVELOPER- PN:Subj Post-Op Subjective Date/time seen: 04/24/23 06:44 Interval history: POD#1 Ema reports doing well today. No issues overnight. Her pain is controlled with PO meds. She has tolerated regular diet. She denies any heavy vaginal bleeding. She has voided. She has passed flatus. She has ambulated and denies any symptoms of anemia. She is ready to go home. Review of Systems Review of Systems: All systems reviewed & are unremarkable except as noted in HPI and below (HPI) Constitutional: Constitutional: Denies chills, Denies fever(s) and Denies headache(s) Eyes: Eyes: Denies change in vision ENT: Denies dizziness and Denies headache(s) Cardiovascular: Cardiovascular: Denies chest pain and Denies rapid heart rate Respiratory: Respiratory: Denies cough Genitourinary: Genitourinary: Denies abnormal vaginal bleeding Neurologic: Denies dizziness and Denies headache(s) Exam Const: General: cooperative, healthy appearing, comfortable and no acute distress Orientation/consciousness: patient oriented x3 Resp: Effort & Inspection: normal respiratory effort Auscultation: clear to auscultation bilaterally Cardio: Rate: regular rate GI: Inspection: normal to inspection and incision (5 LSC incisions ) GI Palp: Yes abdominal tenderness (appropriate) and Yes Soft to palpation Auscultation: normal bowel sounds : Other: normal bleeding on pad Skin: General skin exam: normal color Neuro: General: patient oriented x3 Psych: Appearance: grossly normal Affect: normal affect Attitude: cooperative FREELANCE PROGRAMMER/APP DEVELOPER - PN: Obj Data Vital Signs Vital Signs: Vital Signs - 24 hr 04/23/23 11:00 04/23/23 13:30 04/23/23 13:45 Temperature 98.5 F 97.7 F Pulse Rate 59 L 85 63 Respiratory Rate 18 10 L 14 Blood Pressure 135/82 134/82 133/96 H Pulse Oximetry 99 100 100 Oxygen Delivery Room Air Simple Face Mask Simple Face Mask Oxygen Flow Rate 8 8 04/23/23 14:00 04/23/23 14:08 04/23/23 14:15 Temperature Pulse Rate 60 79 Respiratory Rate 12 18 Blood Pressure 126/71 129/74 Pulse Oximetry 100 96 97 Oxygen Delivery Simple Face Mask Room Air Room Air Oxygen Flow Rate 8 04/23/23 14:30 04/23/23 14:45 04/23/23 15:00 Temperature Pulse Rate 61 58 L 77 Respiratory Rate 14 12 18 Blood Pressure 118/87 114/77 110/83 Pulse Oximetry 96 95 94 Oxygen Delivery Room Air Room Air Room Air Oxygen Flow Rate 04/23/23 15:15 04/23/23 15:30 04/23/23 15:40 Temperature Pulse Rate 58 L 59 L 58 L Respiratory Rate 14 14 16 Blood Pressure 123/78 114/78 115/76 Pulse Oximetry 93 92 99 Oxygen Delivery Room Air Room Air Nasal Cannula Oxygen Flow Rate 2 04/23/23 16:15 04/23/23 16:15 04/23/23 19:20 Temperature 98.2 F 97.7 F Pulse Rate 51 L 51 L 57 L Respiratory Rate 16 16 16 Blood Pressure 105/62 121/73 Pulse Oximetry 99 99 98 Oxygen Delivery Nasal Cannula Oxygen Flow Rate 2 04/24/23 00:15 04/24/23 04:00 Temperature 98.1 F 97.7 F Pulse Rate 59 L 59 L Respiratory Rate 18 18 Blood Pressure 120/78 100/56 L Pulse Oximetry 99 98 Oxygen Delivery Oxygen Flow Rate Intake/Output Intake/Output: Intake & Output 04/21/23 04/22/23 04/23/23 04/24/23 23:59 23:59 23:59 23:59 Intake Total 750 Output Total 75 600 Balance 675 -600 Meds/Re
[2023-04-24 08:05] VITALS: BP 103/58; PULSE 61; RESP 16; TEMP 37.3; O2SAT 98
--- NOTE | 2023-04-24 08:45 | WPDANESPN ---
Anes - Prog Note Post-Op Date/Time: 04/24/23 08:45 Cardiovascular status: normal Respiratory status: normal Airway patency: baseline Mental status: baseline Post-Op hydration status: normal Vital Signs: Last Vital Signs Temp 36.5 C 04/24/23 04:00 Pulse 59 L 04/24/23 04:00 Resp 18 04/24/23 04:00 BP 100/56 L 04/24/23 04:00 Pulse Ox 98 04/24/23 04:00 O2 Del Method Nasal Cannula 04/23/23 16:15 O2 Flow Rate 2 04/23/23 16:15 Pain Score (VAS): no complaintd I/O: Intake & Output 04/23/23 04/24/23 04/24/23 23:59 07:59 15:59 Output Total 600 Balance -600 Laboratory Tests 04/24/23 04:08 04/24/23 04:09 04/24/23 04/24/23 04:08 04:09 WBC 11.6 H RBC 3.85 L Hgb 11.2 L Hct 33.6 L MCV 87.3 MCH 29.1 MCHC 33.3 RDW 14.0 Plt Count 235 MPV 10.1 Immature Gran % (Auto) 0.6 H Neut % (Auto) 84.9 H Lymph % (Auto) 9.6 L Robertson % (Auto) 4.8 Eos % (Auto) 0.0 Baso % (Auto) 0.1 L Lymph # (Auto) 1.11 Robertson # (Auto) 0.6 Eos # (Auto) 0.0 Baso # (Auto) 0.0 Abs Immat Gran (auto) 0.07 H Absolute Neuts (auto) 9.8 H Absolute Nucleated RBC 0.0 Nucleated RBC % 0.0 Sodium 134 L Potassium 3.9 Chloride 105 Carbon Dioxide 24 Anion Gap 5 L BUN 10 D Creatinine 0.60 L Estim Creat Clear Calc 108 Estimated GFR > 60 Glucose 110 Calcium 8.2 L Post-procedural complaints: none Patient Feedback: Patient satisfied with anesthetic care.
--- NOTE | 2023-04-24 09:00 | PC.NURSE ---
PT introductions made and plan of care discussed per post op business center manager surgery, pain management, daily care activities and pending discharge to home. PT sole recipient of such instructions and no barriers to learning identified at this time. PT received such instructions per one to one discussion, and demonstrations this shift. PT verbalized understanding of such care.
[2023-04-24 09:20] VITALS: PULSE 61; RESP 16; O2SAT 98
--- NOTE | 2023-04-24 11:30 | PC.NURSE ---
PT received discharge instructions per protocol and verbalized understanding of such care.
--- NOTE | 2023-04-24 12:00 | PC.NURSE ---
PT discharged to home ambulatory accompanied by spouse and and walked to waiting car. Follow up appts confirmed.
== END 2023-04-24 12:00 | disposition home or self-care (01) ==
LOC: ANHSURGERY 13:00 → ANHOB2 15:53
PROVIDERS: PCP Pediatrics; Visit Provider Student in an Organized Health Care Education/Training Program
PROC: (CPT 58570; principal; 2023-04-23 12:00)
DX: N72 Inflammatory disease of cervix uteri (principal); N87.9 Dysplasia of cervix uteri, unspecified
CPT/HCPCS: 58570; S2900; 36415; 80048; 85025; 85027; 86850; 86900; 86901; 88307; 99199; A9270; J0690; J1100; J1170; J1200; J1885; J2250; J2405; J2704; J3010; J7030; J7120